=== PATIENT | female | born 1960 | race Caucasian/White ===

== ENCOUNTER → 2023-05-18 10:07 | Outpatient (BNVA) | payer OTHER, SELFPAY | PROVIDERS: Visit Provider Family Medicine Adult Medicine | DX: I10 Essential (primary) hypertension (principal); I73.9 Peripheral vascular disease, unspecified; E66.9 Obesity, unspecified | CPT/HCPCS: 80053; 80061; 84443; 85025 ==

== ENCOUNTER → 2023-09-26 13:58 | Outpatient (BNVA) | payer OTHER, SELFPAY | PROVIDERS: PCP Family Medicine Adult Medicine; Visit Provider Internal Medicine | DX: R07.9 Chest pain, unspecified (principal) | CPT/HCPCS: 36415; 85610; 93005 ==

== ENCOUNTER 2023-10-25 11:33 | Outpatient (CLI) | payer OTHER, SELFPAY ==
--- NOTE | 2023-10-25 13:15 | USCV_ITS ---
Isha Sr Age: 62 Gender: F : 1960 Exam Date: 10/25/2023 12:21 Ordering Phys: Amador Dexter M.D ([email or web address]) Technologist: STEPHANIE Exam Location: [facility] [place] Indication: Claudication Risk Factors: Previous Vascular Surgery: RIGHT LEFT BP: 113.0 / 70.00 BP: 114.0/ 68.00 0 0 Waveform Velocity (cm/s) Velocity (cm/s) Waveform Biphasic 86.8 Iliac Prox 80.4 Monophasic Biphasic 123.5 Iliac Mid 78.4 Monophasic Biphasic 186.9 Iliac Distal 72.4 Monophasic Biphasic 56.0 TELE MARKETING EXECUTIVE 44.0 Monophasic Biphasic 124.0 SFA Prox 67.0 Monophasic Biphasic 112.0 SFA Mid 38.0 Monophasic Biphasic 82.0 SFA Dist 42.0 Monophasic Biphasic 24.0 POP 33.0 Monophasic Biphasic 56.0 MANAGER PUBLIC 40.0 Monophasic Biphasic 50.0 DPA N/A 0.9 TRELL 0.5 FINDINGS Left DPA unobtainable. Appears occluded. Biphasic waveforms on the right lower extremity. Monophasic and continuous waveforms throughout the left lower extremity. Relatively low Doppler flow velocities on the left side. Resting TRELL of 0.9 on the right and 0.5 on the left CONCLUSIONS 1. Abnormal resting TRELL of 0.5 on the left side, suggesting moderate to severe obstructive arterial disease on the left side, possibly multisegmental. Some features of collateral filling in the distal SFA, popliteal and posterior tibial artery on the left side. 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 2. Slightly diminished resting TRELL on the right side suggesting mild peripheral artery disease, resting TRELL of 0.9. No similar previous studies are available for comparison Dr Saadia Montgomery MD [facility] (Electronically Signed) Final Date: 28 October 2023 18:58 S
== END 2023-10-25 11:34 | disposition home or self-care (01) ==
LOC: RAD 11:38
PROVIDERS: PCP Family Medicine Adult Medicine; Visit Provider Internal Medicine
DX: M79.604 Pain in right leg (principal); M79.605 Pain in left leg; I73.9 Peripheral vascular disease, unspecified; R93.6 Abnormal findings on diagnostic imaging of limbs
CPT/HCPCS: 85610; 93925

== ENCOUNTER → 2023-11-01 11:07 | Outpatient (BNVA) | payer OTHER, SELFPAY | PROVIDERS: PCP Family Medicine Adult Medicine; Visit Provider Internal Medicine | DX: Z79.01 Long term (current) use of anticoagulants (principal); Z95.828 Presence of other vascular implants and grafts; I73.9 Peripheral vascular disease, unspecified | CPT/HCPCS: 36415; 85610 ==

== ENCOUNTER → 2023-11-08 11:46 | Outpatient (BNVA) | payer OTHER, SELFPAY | PROVIDERS: PCP Family Medicine Adult Medicine; Visit Provider Internal Medicine | DX: Z95.828 Presence of other vascular implants and grafts (principal) | CPT/HCPCS: 85610 ==